=== PATIENT | male | born 1970 | race Caucasian/White ===

== ENCOUNTER 2020-03-20 03:43 | Emergency (ER) | payer MEDICAID ==
[~2020-03-20] VITALS: Ht 175.3 cm; Wt 80.7 kg
[~2020-03-20 03:43] MED LIST: ADDERALL15 MG PO; MYSOLINE50 M1 PO; PERCOCET1 TA5 PO; PROTONIX TR40 M1 PO; TENORMIN100 MG PO
[2020-03-20 03:46] VITALS: Ht 175.3 cm; Wt 80.7 kg
[2020-03-20 04:37] LABS: BASOPHIL % 1.3 % (0-2); CALCIUM 8.1 mg/dL (8.5-10.1); CARBON DIOXIDE 19.6 mmol/L (21-32); CHLORIDE SERUM 106 mmol/L (98-107); CREATININE SERUM 0.9 mg/dL (0.7-1.3); GFR1 > 60 mL/min; GLUCOSE SERUM 89 mg/dL (74-106); PLATELET COUNT 194 x10^3mcL (130-400); POTASSIUM SERUM 3.1 mmol/L (3.5-5.1); SODIUM SERUM 142 mmol/L (136-145)
[2020-03-20 04:42] LABS: ALBUMIN 3.5 g/dL (3.4-5.0); ALKALINE PHOSPHATASE 88 U/L (46-116); ALT/SGPT 22 U/L (16-63); AST/SGOT 13 U/L (15-37); BILIRUBIN TOTAL 0.54 mg/dL (0.20-1.00); LIPASE 37 IU/L (73-393); TOTAL PROTEIN, SERUM 6.2 g/dL (6.4-8.2)
[2020-03-20 06:17] VITALS: BP 135/71
== END 2020-03-20 06:17 | disposition home or self-care (01) ==
LOC: ED 03:43
PROVIDERS: Student in an Organized Health Care Education/Training Program
DX: E87.6 Hypokalemia (principal); R10.813 Right lower quadrant abdominal tenderness; F11.20 Opioid dependence, uncomplicated; J45.909 Unspecified asthma, uncomplicated; I10 Essential (primary) hypertension; Z90.89 Acquired absence of other organs; Z85.038 Personal history of other malignant neoplasm of large intestine; Z88.6 Allergy status to analgesic agent
CPT/HCPCS: J2270; J2405; J7030

== ENCOUNTER 2020-04-18 09:46 | Emergency (ER) | payer MEDICAID ==
[~2020-04-18] VITALS: Ht 175.3 cm; Wt 79.8 kg
[2020-04-18 09:48] VITALS: Ht 175.3 cm; Wt 79.8 kg
[2020-04-18 10:49] LABS: BASOPHIL % 0.5 % (0-2); PLATELET COUNT 208 x10^3mcL (130-400)
[2020-04-18 10:53] LABS: CALCIUM 8.6 mg/dL (8.5-10.1); CARBON DIOXIDE 27.4 mmol/L (21-32); CHLORIDE SERUM 105 mmol/L (98-107); CREATININE SERUM 0.6 mg/dL (0.7-1.3); GFR1 > 60 mL/min; GLUCOSE SERUM 110 mg/dL (74-106); POTASSIUM SERUM 3.3 mmol/L (3.5-5.1); SODIUM SERUM 141 mmol/L (136-145)
[2020-04-18 11:01] LABS: RED CELL DISTRIBUTION WIDTH 17.2 % (11.5-14.5)
[2020-04-18 11:48] VITALS: BP 107/59
== END 2020-04-18 11:48 | disposition home or self-care (01) ==
LOC: ED 09:46
PROVIDERS: Emergency Medicine
DX: K29.70 Gastritis, unspecified, without bleeding (principal); K31.84 Gastroparesis; J45.909 Unspecified asthma, uncomplicated; I10 Essential (primary) hypertension; Z90.89 Acquired absence of other organs; Z88.6 Allergy status to analgesic agent; Z85.038 Personal history of other malignant neoplasm of large intestine
CPT/HCPCS: J3010; Q0162

== ENCOUNTER 2020-04-24 07:10 | Emergency (ER) | payer MEDICAID ==
[~2020-04-24] VITALS: Ht 175.3 cm; Wt 78.9 kg
[2020-04-24 07:25] VITALS: Ht 175.3 cm; Wt 78.9 kg
[2020-04-24 08:39] LABS: BASOPHIL % 0.4 % (0-2); PLATELET COUNT 218 x10^3mcL (130-400)
[2020-04-24 08:41] LABS: RED CELL DISTRIBUTION WIDTH 17.7 % (11.5-14.5)
[2020-04-24 08:48] LABS: ALKALINE PHOSPHATASE 92 U/L (46-116); ALT/SGPT 23 U/L (16-63); AST/SGOT 19 U/L (15-37); BILIRUBIN TOTAL 0.72 mg/dL (0.20-1.00); CALCIUM 8.9 mg/dL (8.5-10.1); CARBON DIOXIDE 28.4 mmol/L (21-32); CHLORIDE SERUM 103 mmol/L (98-107); CREATININE SERUM 0.8 mg/dL (0.7-1.3); GFR1 > 60 mL/min; GLUCOSE SERUM 114 mg/dL (74-106); SODIUM SERUM 142 mmol/L (136-145); TOTAL PROTEIN, SERUM 7.4 g/dL (6.4-8.2)
[2020-04-24 08:51] LABS: microscopic required? YES; urine erythrocyte TRACE (NEGATIVE)
[2020-04-24 08:52] LABS: POTASSIUM SERUM 2.8 mmol/L (3.5-5.1)
[2020-04-24 10:35] VITALS: BP 111/67
== END 2020-04-24 10:35 | disposition home or self-care (01) ==
LOC: ED 07:10
PROVIDERS: Emergency Medicine
DX: K40.90 Unilateral inguinal hernia, without obstruction or gangrene, not specified as recurrent (principal); G89.3 Neoplasm related pain (acute) (chronic); J45.909 Unspecified asthma, uncomplicated; I10 Essential (primary) hypertension; Z90.89 Acquired absence of other organs; Z88.6 Allergy status to analgesic agent
CPT/HCPCS: J2270; J2405

== ENCOUNTER 2020-05-07 07:09 | Emergency (ER) | payer MEDICAID ==
[~2020-05-07] VITALS: Ht 175.3 cm; Wt 77.1 kg
[2020-05-07 07:24] VITALS: Ht 175.3 cm; Wt 77.1 kg
[2020-05-07 09:53] VITALS: BP 132/75
== END 2020-05-07 09:53 | disposition home or self-care (01) ==
LOC: ED 07:09
DX: M54.5 Low back pain (principal); G89.29 Other chronic pain; J45.909 Unspecified asthma, uncomplicated; I10 Essential (primary) hypertension; Z90.89 Acquired absence of other organs; Z85.038 Personal history of other malignant neoplasm of large intestine; Z88.6 Allergy status to analgesic agent
CPT/HCPCS: J2270

== ENCOUNTER 2020-07-20 07:46 | Emergency (ER) | payer MEDICAID, BC ==
[~2020-07-20] VITALS: Ht 175.3 cm; Wt 85.7 kg
[2020-07-20 08:07] VITALS: BP 122/64; Ht 175.3 cm; Wt 85.7 kg
== END 2020-07-20 10:54 | disposition home or self-care (01) ==
LOC: ED 07:46
DX: M79.10 Myalgia, unspecified site (principal); R11.2 Nausea with vomiting, unspecified; J45.909 Unspecified asthma, uncomplicated; I10 Essential (primary) hypertension; Z98.890 Other specified postprocedural states; Z85.038 Personal history of other malignant neoplasm of large intestine; Z88.6 Allergy status to analgesic agent
CPT/HCPCS: Q0162